=== PATIENT | male | born 1990 | race Caucasian/White ===

== ENCOUNTER 2016-12-04 09:10 | Outpatient (CLI) | payer SELFPAY | END 2016-12-04 09:11 | disposition home or self-care (01) | DX: I10 Essential (primary) hypertension (principal) ==

== ENCOUNTER 2020-08-08 14:40 | Outpatient (CLI) | payer SELFPAY | END 2020-08-08 23:59 | disposition home or self-care (01) | LOC: COV 14:40 | PROVIDERS: ATTEND Family Medicine | DX: Z20.828 Contact with and (suspected) exposure to other viral communicable diseases (principal) ==